=== PATIENT | female | born 1980 | race Caucasian/White ===

== ENCOUNTER 2021-12-19 11:53 | Emergency (ER) | payer SELFPAY ==
[2021-12-19 12:13] VITALS: BP 134/74
--- NOTE | 2021-12-19 12:47 | Cat Scan Report ---
CT HEAD WITHOUT CONTRAST INDICATION / CLINICAL INFORMATION: neuro deficits <6hrs or sx present upon awakening. TECHNIQUE: All CT scans at this location are performed using CT dose reduction for ALARA by means of automated e xposure control. COMPARISON: None available. FINDINGS: HEMORRHAGE: No evidence of intracranial hemorrhage or extra-axial fluid collection. EXTRA-AXIAL SPACES: Cortical sulci, sylvian fissures and basilar cisterns have an unremarkable appear ance. VENTRICULAR SYSTEM: The third and lateral ventricles are mildly enlarged. This is likely on a develop mental basis. CEREBRAL PARENCHYMA: No areas of abnormal brain parenchymal attenuation are identified. There is no indication of recent infarction. MIDLINE SHIFT OR HERNIATION: There is no mass effect. CEREBELLUM / BRAINSTEM: Brainstem and cerebellum have an unremarkable appearance. MIDLINE STRUCTURES:No abnormalities of the pituitary gland or pineal region are identified. INTRACRANIAL VESSELS:No abnormalities are identified on this noncontrast head CT. ORBITS: visualized portions of the orbits have an unremarkable appearance. SOFT TISSUES of HEAD: No significant abnormality. CALVARIUM: Evaluation of bone windows reveals no abnormalities. PARANASAL SINUSES / MASTOID AIR CELLS: Visualized portions of the paranasal sinuses are free from inf lammatory mucosal disease. Mastoid air cells are normally pneumatized. ADDITIONAL FINDINGS: None. IMPRESSION: 1. No significant intracranial abnormality. Signer Name: Uriel Segura MD Signed: 12/19/2021 12:42 PM Workstation Name: [employer]
[2021-12-19 13:53] LABS: Basophils % (Auto) 0.4 % (0.0-1.8); Eosinophils % (Auto) 0.7 % (0.0-4.3); Hematocrit 47.3 % (30.3-42.9); Hemoglobin 16.5 gm/dl (10.1-14.3); Lymphocytes # (Auto) 1.1 K/mm3 (1.2-5.4); Mean Corpuscular HGB Conc 35 % (30-34); Mean Corpuscular Volume 95 fl (79-97); Monocytes # (Auto) 0.3 K/mm3 (0.0-0.8); Monocytes % (Auto) 7.9 % (0.0-7.3); Platelet Count 148 K/mm3 (140-440); Red Blood Count 5.01 M/mm3 (3.65-5.03); Red Cell Distribution Width 13.4 % (13.2-15.2)
[2021-12-19 14:01] LABS: INR 0.92 (0.87-1.13)
[2021-12-19 14:02] LABS: Partial Thromboplastin Time 46.3 Sec. (24.2-36.6)
[2021-12-19 14:33] LABS: Blood Urea Nitrogen 7 mg/dL (7-17); Calcium 9.4 mg/dL (8.4-10.2); Hemolysis Index 67
[2021-12-19 14:37] LABS: BUN/Creatinine Ratio 12
--- NOTE | 2021-12-20 18:53 | Electrocardiograph Report ---
[facility] Test Date: 2021-12-19 Test Time: 12:21:22 Pat Name: ADVID LOGAN Department: Room: Gender: F [employer]: NURSE : 1980 Requested By: ED DOC Order Number: [id number] Reading MD: Nighat Hernandez Measurements Intervals [place] Rate: 72 P: 4 VT: 132 QRS: 32 QRSD: 66 T: 12 QT: 392 QTc: 431 Interpretive Statements Sinus rhythm No previous ECG available for comparison Electronically Signed On 12-20-2021 18:53:46 EDT by Nighat Hernandez
== END 2021-12-19 13:00 ==
LOC: ED 11:53
DX: R07.9 Chest pain, unspecified (principal); R20.0 Anesthesia of skin; Z53.21 Procedure and treatment not carried out due to patient leaving prior to being seen by health care provider
CPT/HCPCS: 36415; 70450; 80048; 84484; 85025; 85610; 85670; 85730; 93005; 99283

== ENCOUNTER 2021-12-20 07:34 | Emergency (ER) | payer MEDICAID ==
[2021-12-20 07:42] VITALS: BP 139/88
[2021-12-20 14:07] LABS: HCG Qualitative,Urine Negative (Negative)
[2021-12-20 14:42] LABS: Hyaline Casts,Urine 1 /LPF; Mucus,Urine FEW /HPF
--- NOTE | 2021-12-20 14:56 | Event Note ---
ED Screening Note ED Screening Note: MSE COMPLETED HERE YESTERDAY FOR THE SAME UA STILL PENDING [id number] This initial assessment/diagnostic orders/clinical plan/treatment(s) is/are subject to change based on patients health status, clinical progression and re- assessment by fellow clinical providers in the ED. Further treatment and workup at subsequent clinical providers discretion. Patient/guardian urged not to elope from the ED as their condition may be serious if not clinically assessed and managed. Initial orders include: PT LWOB
[2021-12-20 15:20] LABS: Color,Urine Amber (Yellow)
[2021-12-20 15:21] LABS: Bilirubin,Urine Negative (Negative); Blood,Urine 1+ (Negative)
== END 2021-12-20 15:00 | disposition left against medical advice (07) ==
LOC: ED 07:34
DX: R51.9 Headache, unspecified (principal); Z53.21 Procedure and treatment not carried out due to patient leaving prior to being seen by health care provider
CPT/HCPCS: 81001; 81025